=== PATIENT | female | born 1935 | race Caucasian/White ===

== ENCOUNTER → 2016-12-09 | Outpatient (CLI) | payer MEDICARE, BC | END | disposition home or self-care (01) | LOC: PCVCCLINIC 04:00 | PROVIDERS: ATTEND Internal Medicine | DX: I25.118 Atherosclerotic heart disease of native coronary artery with other forms of angina pectoris (principal); I10 Essential (primary) hypertension; I65.29 Occlusion and stenosis of unspecified carotid artery; E78.2 Mixed hyperlipidemia; Z79.82 Long term (current) use of aspirin; Z79.899 Other long term (current) drug therapy | CPT/HCPCS: 80061; 93005; G0463 ==

== ENCOUNTER → 2017-05-31 | Outpatient (CLI) | payer MEDICARE, BC ==
--- NOTE | 2017-05-31 11:04 | PCVCIMAG ---
APPROVED REPORT Indications Stenosis Surgery/Intervention Carotid Stent: left Endarterectomy: right Doppler Spectral Velocity Analysis PSV / EDVPSV / EDV ECA (R) 85 / 3 cm/sECA (L) 406 / 32 cm/s dICA (R) 61 / 17 cm/sdICA (L) 84 / 27 cm/s Eric (R) 105 / 15 cm/smICA (L) 100 / 23 cm/s pICA (R) 108 / 16 cm/spICA (L) 98 / 21 cm/s Bulb (R) 89 / 15 cm/sBulb (L) 117 / 21 cm/s dCCA (R) 87 / 12 cm/sdCCA (L) 125 / 25 cm/s mCCA (R) 85 / 12 cm/smCCA (L) 87 / 18 cm/s Vert (R) 63 / 17 cm/sVert (L) 55 / 9 cm/s ICA/CCA 1.24ICA/CCA 0.80 Basic Measurements Blood Pressure: Pulses: Right Left RightLeft Brachial(Sitting) 126/23ifKb159/62mmHgTemporal Real Time B-Mode Imaging Vert. (R)AntegradeVert. (L)Antegrade Findings The right carotid bulb has mild plaque. The right proximal internal carotid artery shows no significant stenosis, prior endarterectomy. The right common carotid artery shows no significant stenosis. The right external carotid artery shows no significant stenosis. The left carotid bulb has mild plaque. The left proximal internal carotid artery shows no significant stenosis, widely patent stent. The left common carotid artery shows no significant stenosis. The left external carotid artery shows >90% stenosis. Conclusion 1. Right internal carotid artery plaquing; prior endarterectomy 2. Left internal and common carotid stent, widely patent 3. Antegrade vertebral flow
== END | disposition home or self-care (01) ==
LOC: PCVCIMAG 10:25
PROVIDERS: ATTEND Internal Medicine
DX: I65.23 Occlusion and stenosis of bilateral carotid arteries (principal); Z95.5 Presence of coronary angioplasty implant and graft
CPT/HCPCS: 93880

== ENCOUNTER → 2017-06-15 | Outpatient (CLI) | payer MEDICARE, BC ==
--- NOTE | 2017-06-15 14:44 | PCVCIMAG ---
APPROVED REPORT Exam: Stress Echocardiogram Indication: CAD , Hyperlipidemia, Hypertension, Chest Pressure Patient Location: Echo lab Stress Nurse: Magdaelna Duvall RN Status: routine Ht: 5 ft 4 in HR: 61 bpm BP: 152/70 mmHg Rhythm: NSR Procedure The patient underwent an Exercise Stress Test using the Dontrell Protocol. Blood pressure, heart rate, and EKG were monitored. An Echocardiogram was performed by recycling technician in four stages in quad fashion. At peak stress, four selected images were obtained and placed side by side with resting images for comparison. Stress Test Details Stress Test: Exercise stress testing was performed using a Dontrell protocol. HR Resting HR: 61 bpmMax Heart Rate (APMHR): 139 bpm Max HR Achieved: 150 bpmTarget HR (85% APMHR): 118 bpm % of APMHR: 107 Recovery HR: 85 bpm HR response to stress: Normal HR response to stress BP Resting BP: 152/70 mmHg Max BP: 180/66 mmHg Recovery BP: 156/80 mmHg ECG Resting ECG: Sinus Rhythm Stress ECG: Sinus Rhythm ST Change: Horizontal ST depression Maximum ST Deviation: 1 mm Arrhythmia: None Recovery ECG: Sinus Rhythm Clinical Reason for Termination: Maximal effort Exercise duration: 5 min 26 sec Highest Stage Achieved: Stage 2: 2.5 mph at 12% grade. Exercise capacity: 7.00 METs Overall Exercise Capacity for Age: Normal Angina Score: None Stress ECG Conclusion Clinical: Non-ischemic ECG: Ischemic Ward Treadmill Score is 0.0 which is Moderate risk. Pre-Stress Echo The resting Echocardiogram showed normal left ventricular contractility with an estimated Ejection Fraction of about >55%. Normal wall motion in all segments on baseline images. Post-Stress Echo The stress Echocardiogram showed abnormal left ventricular contractility with an estimated Ejection Fraction of about 60-65%. The stress Echocardiogram demonstrated wall motion abnormality in the basal inferior wall. Consistent with known right coronary artery occlusion with collateralization Conclusion Clinical Response: Non-ischemic Exercise Capacity: Average Stress ECG Response: Ischemic Stress Echo Images: Ischemic 1. Maximal stress positive for ischemia, onsistent with known right coronary artery occlusion with collateralization 2. No angina or ischemic-sounding symptoms 3. This study was associated with average exercise capacity (7.0 METS). Other Information Study Quality: Adequate <Conclusion> 1. Maximal stress positive for ischemia, onsistent with known right coronary artery occlusion with collateralization 2. No angina or ischemic-sounding symptoms 3. This study was associated with average exercise capacity (7.0 METS).
== END | disposition home or self-care (01) ==
LOC: PCVCIMAG 10:33
PROVIDERS: ATTEND Internal Medicine
DX: I25.10 Atherosclerotic heart disease of native coronary artery without angina pectoris (principal); I10 Essential (primary) hypertension; E78.5 Hyperlipidemia, unspecified; R07.89 Other chest pain
CPT/HCPCS: 93325; 93351

== ENCOUNTER → 2017-12-19 | Outpatient (CLI) | payer MEDICARE, BC | END | disposition home or self-care (01) | LOC: PCVCCLINIC 12:22 | DX: I25.10 Atherosclerotic heart disease of native coronary artery without angina pectoris (principal); I10 Essential (primary) hypertension; I65.23 Occlusion and stenosis of bilateral carotid arteries; E78.5 Hyperlipidemia, unspecified; Z87.891 Personal history of nicotine dependence; Z79.899 Other long term (current) drug therapy; Z79.82 Long term (current) use of aspirin; Z88.8 Allergy status to other drugs, medicaments and biological substances | CPT/HCPCS: 80061; 93005; G0463 ==

== ENCOUNTER → 2018-04-13 | Outpatient (CLI) | payer MEDICARE, BC ==
--- NOTE | 2018-04-13 12:49 | PCVCIMAG ---
APPROVED REPORT Indications Stenosis Risk Factors Hypertension: Hyperlipidemia CAD, AREAS OF SWELLING ON LT NECK Surgery/Intervention Carotid Stent: left Endarterectomy: right Doppler Spectral Velocity Analysis PSV / EDVPSV / EDV ECA (R) 87 / 7 cm/sECA (L) 410 / 38 cm/s dICA (R) 58 / 16 cm/sdICA (L) 76 / 24 cm/s Eric (R) 107 / 17 cm/smICA (L) 97 / 17 cm/s pICA (R) 91 / 20 cm/spICA (L) 84 / 18 cm/s Bulb (R) 92 / 12 cm/sBulb (L) 113 / 19 cm/s dCCA (R) 103 / 14 cm/sdCCA (L) 131 / 26 cm/s mCCA (R) 89 / 15 cm/smCCA (L) 76 / 12 cm/s Vert (R) 60 / 14 cm/sVert (L) 56 / 13 cm/s ICA/CCA 1.04ICA/CCA 0.74 Basic Measurements Blood Pressure: Pulses: Right Left RightLeft Brachial(Sitting) 152/77ayRz920/74mmHgTemporal Findings The right carotid bulb has mild plaque. The right proximal internal carotid artery shows no significant stenosis. s/p CEA The right common carotid artery shows no significant stenosis. The right external carotid artery shows no significant stenosis. The left carotid bulb has mild plaque. The left proximal internal carotid artery shows no significant stenosis. Prior common and internal carotid stenting The left common carotid artery shows no significant stenosis. The left external carotid artery shows >90% stenosis. The left external carotid artery shows stenosis. Conclusion Right internal carotid artery shows no significant stenosis. s/p CEA Left internal carotid artery shows no significant stenosis. Prior common and internal carotid stenting Antegrade vertebral flow
== END | disposition home or self-care (01) ==
LOC: PCVCIMAG 13:05
PROVIDERS: ATTEND Internal Medicine
DX: I65.23 Occlusion and stenosis of bilateral carotid arteries (principal); I25.10 Atherosclerotic heart disease of native coronary artery without angina pectoris; I10 Essential (primary) hypertension; E78.5 Hyperlipidemia, unspecified; R22.1 Localized swelling, mass and lump, neck
CPT/HCPCS: 93880

== ENCOUNTER → 2018-06-27 | Outpatient (CLI) | payer MEDICARE, BC | END | disposition home or self-care (01) | LOC: PCVCCLINIC 15:27 | PROVIDERS: ATTEND Internal Medicine | DX: I25.10 Atherosclerotic heart disease of native coronary artery without angina pectoris (principal); I65.23 Occlusion and stenosis of bilateral carotid arteries; I10 Essential (primary) hypertension; E78.5 Hyperlipidemia, unspecified; Z79.82 Long term (current) use of aspirin; Z87.891 Personal history of nicotine dependence | CPT/HCPCS: 36415; 80061; 93005; G0463 ==

== ENCOUNTER → 2018-12-26 | Outpatient (CLI) | payer MEDICARE, BC | END | disposition home or self-care (01) | LOC: PCVCCLINIC 10:00 | PROVIDERS: ATTEND Internal Medicine | DX: I25.10 Atherosclerotic heart disease of native coronary artery without angina pectoris (principal); I65.23 Occlusion and stenosis of bilateral carotid arteries; I10 Essential (primary) hypertension; E78.5 Hyperlipidemia, unspecified; Z79.82 Long term (current) use of aspirin; Z87.891 Personal history of nicotine dependence; Z88.8 Allergy status to other drugs, medicaments and biological substances | CPT/HCPCS: 36415; 80061; 93005; G0463 ==

== ENCOUNTER → 2019-06-19 | Outpatient (CLI) | payer MEDICARE, BC ==
--- NOTE | 2019-06-19 11:19 | PCVCIMAG ---
APPROVED REPORT Indications Stenosis Risk Factors Hypertension: Hyperlipidemia CAD Surgery/Intervention Carotid Stent: left Endarterectomy: right Doppler Spectral Velocity Analysis PSV / EDVPSV / EDV ECA (R) 123 / 9 cm/sECA (L) 388 / 44 cm/s dICA (R) 57 / 16 cm/sdICA (L) 83 / 25 cm/s Eric (R) 109 / 20 cm/smICA (L) 116 / 30 cm/s pICA (R) 97 / 18 cm/spICA (L) 79 / 18 cm/s Bulb (R) 101 / 15 cm/sBulb (L) 105 / 17 cm/s dCCA (R) 101 / 16 cm/sdCCA (L) 123 / 22 cm/s mCCA (R) 104 / 15 cm/smCCA (L) 93 / 20 cm/s Vert (R) 49 / 12 cm/sVert (L) 59 / 13 cm/s ICA/CCA 1.08ICA/CCA 0.94 Basic Measurements Blood Pressure: Pulses: Right Left RightLeft Brachial(Sitting) 178/97exMd954/84mmHgTemporal Real Time B-Mode Imaging Vert. (R)AntegradeVert. (L)Antegrade Findings The right carotid bulb has mild plaque. The right proximal internal carotid artery shows no significant stenosis; prior right carotid endarterectomy. The right common carotid artery shows no significant stenosis. The right external carotid artery shows no significant stenosis. The left carotid bulb has mild plaque. The left proximal internal carotid artery shows no significant stenosis; widely patent common and internal carotid artery stent. The left common carotid artery shows no significant stenosis. The left external carotid artery shows >90% stenosis. Conclusion 1. Right internal carotid artery without significant stenosis or plaquing. Prior carotid endarterectomy. 2. Left internal carotid artery with widely patent common and internal carotid artery stents 3. Antegrade vertebral flow Similar to a study dated April 13, 2018
== END | disposition home or self-care (01) ==
LOC: PCVCIMAG 09:34
PROVIDERS: ATTEND Internal Medicine
DX: I65.23 Occlusion and stenosis of bilateral carotid arteries (principal); I25.10 Atherosclerotic heart disease of native coronary artery without angina pectoris; I10 Essential (primary) hypertension; E78.5 Hyperlipidemia, unspecified; Z90.710 Acquired absence of both cervix and uterus; Z87.891 Personal history of nicotine dependence; Z79.899 Other long term (current) drug therapy; Z88.8 Allergy status to other drugs, medicaments and biological substances
CPT/HCPCS: 36415; 80061; 93005; 93880; G0463